=== PATIENT | male | born 1980 | race African-American/Black ===

== ENCOUNTER 2025-05-13 00:24 | Emergency (ER) | payer OTHER ==
[2025-05-13] MEDS ORDERED: Ketorolac 30 MG/ML SDV IM ONE (01:00)
[2025-05-13 01:03] LABS: BASOPHILS ABSOLUTE AUTO 0.03 K/uL (0.00-0.10); BASOPHILS PERCENT AUTO 0.8 % (0.1-1.3); EOSINOPHILS ABSOLUTE AUTO 0.07 K/uL (0.00-0.40); EOSINOPHILS PERCENT AUTO 1.9 % (0.0-5.4); IMMATURE GRAN ABSOLUTE AUTO 0.01 K/uL (0.00-0.23); IMMATURE GRAN PERCENT AUTO 0.3 % (0.0-0.7); LYMPHOCYTES ABSOLUTE AUTO 1.19 K/uL (0.8-3.3); LYMPHOCYTES PERCENT AUTO 32.5 % (11.4-47.7); MONOCYTES ABSOLUTE AUTO 0.36 K/uL (0.20-0.90); MONOCYTES PERCENT AUTO 9.8 % (3.3-12.6); NEUTROPHILS ABSOLUTE AUTO 2.00 K/uL (1.0-7.6); NEUTROPHILS PERCENT AUTO 54.7 % (40.0-78.1); PLATELET COUNT,PLT 159 K/uL (130-375); RED BLOOD CELL COUNT 4.67 M/uL (4.14-5.76); WHITE BLOOD CELL COUNT,WBC 3.7 K/uL (3.2-11.0)
[2025-05-13] MEDS: Ketorolac 30 MG/ML SDV IVPUSH ONE (01:09)
[2025-05-13] MEDS: Sodium Chloride 0.9% 10 ML Syringe FLUSH PRN (01:09)
[2025-05-13 01:12] LABS: BLOOD UREA NITROGEN,BUN 16 mg/dL (7-18); CARBON DIOXIDE,CO2 28 mmol/L (21-32); CHLORIDE,CL 104 mmol/L (100-108); CREATININE 1.0 mg/dL (0.8-1.3); EST CRCL DRUG DOSING (CG) 100.23 mL/min; ESTIMATED GFR 93 mL/min (>60); GLUCOSE RANDOM 79 mg/dL (74-106); POTASSIUM,K 4.0 mmol/L (3.6-5.2); SODIUM,NA 139 mmol/L (140-148)
== END 2025-05-13 01:41 | disposition home or self-care (01) ==
LOC: JP.ED 00:24
DX: R07.89 Other chest pain (principal); Z79.899 Other long term (current) drug therapy
CPT/HCPCS: 36415; 71045; 80048; 83605; 84484; 85025; 86140; 93005; 96374; 99284; J1885